=== PATIENT | female | born 1930 | race Caucasian/White ===

== ENCOUNTER 2018-10-01 14:21 | Inpatient (IN) | payer MEDICARE, BC ==
[~2018-10-01] VITALS: Ht 147.3 cm; Wt 66.2 kg
[2018-10-01] MEDS ORDERED: Z GUARD REMEDY PASTE 57 GM TUBE TOP PRN (16:15)
[2018-10-01] MEDS ORDERED: MAGNESIUM HYDROXIDE 30 ML LIQUID UDC PO PRN (16:15)
[2018-10-01] MEDS ORDERED: CLOP75TA15 PO (17:09)
[2018-10-01] MEDS ORDERED: GLIP10TA11 PO (17:09)
[2018-10-01] MEDS ORDERED: ASPI-605 PO (17:09)
[2018-10-01] MEDS ORDERED: LUTE1CAP PO (17:09)
[2018-10-01] MEDS ORDERED: METO-357 PO (17:09)
[2018-10-01] MEDS ORDERED: MAGN250T37 PO (17:09)
[2018-10-01] MEDS ORDERED: ATOR10TA PO (17:09)
[2018-10-01] MEDS ORDERED: POLY255P19 PO (17:09)
[2018-10-01] MEDS ORDERED: AMLO5TAB9 PO (17:09)
[2018-10-01] MEDS ORDERED: METF-442 PO (17:09)
[2018-10-01] MEDS ORDERED: SITA100T PO (17:09)
[2018-10-01] MEDS ORDERED: ECON15CR2 TP (17:09)
[2018-10-01] MEDS ORDERED: LOSA1TAB39 PO (17:09)
[2018-10-01] MEDS ORDERED: CANA100T PO (17:09)
[2018-10-01] MEDS ORDERED: CYAN200017 PO (17:09)
[2018-10-01 17:22] VITALS: BP 149/67
--- NOTE | 2018-10-01 18:27 | NUR ---
Home medications entered, paged Mica HERNANDEZ for medication reconciliation.
--- NOTE | 2018-10-01 18:29 | NUR ---
Admission Note: At 1610 admitted a 88 years old female resident from [facility] via Ambulance via gurney with 2 EMT personnel and DTR for support. Resident is under the care of Dr. Mcginnis and Ger CUELLAR. Resident came with the following past medical hx: DM, HTN, HLD, OA, Glaucoma, obesity, cataract, and CVA. Resident presented at [facility] with c/o acute left sided weakness. Resident has allergies to PCN. Resident is Full code. A/Ox3, responsive to verbal and tactile stimuli. No SOB or acute distress noted, 98% RA. Denies any pain or discomfort at this time. All resident's needs provided, attended and met. Dr. Mcginnis came and evaluated pt. Initial skin assessment reveals left breast fold skin redness with tear,otherwise skin intact. Resident on NCS diet. Dr. Mcginnis and MARY Rizzo made aware of resident's arrival and admission. Kept pt. clean and dry. On low bed with bed alarm turned on. Call light and all frequently used items within reach. Will endorse to oncoming shift accordingly.
--- NOTE | 2018-10-01 20:20 | NUR ---
Blood sugar checked per patient and family member request, sugar noted to be 280. No acute distress noted. Safety maintained. Awaiting med recon.
[2018-10-01] MEDS ORDERED: ECONAZOLE CREAM 30 GM TUBE TP PRN (20:30)
[2018-10-01 20:31] VITALS: BP 96/60
[2018-10-01] MEDS: ATORVASTATIN 10 MG TABLET PO SCH (20:54)
--- NOTE | 2018-10-01 22:32 | NUR ---
Received pt at beginning of shift in bed, appearing to be asleep but easily arousable to verbal stimuli and light touch. No acute distress noted. Primarily Austrian speaking, but able to communicate basic needs in Macedonian. Denies pain or discomfort at this time. All due medications given as ordered, tolerated well. Assisted to bedside commode x 2 with 1 person assist, using front wheel walker. All safety measures and fall precautions maintained. Call light and all personal belongings within reach. Will continue to monitor. Daughter stated she will stay overnight, visitor extended stay signed and placed in chart.
[2018-10-02 06:05] VITALS: BP 157/70
[2018-10-02 07:40] LABS: CARBON DIOXIDE 24 mmol/L (21-32); CHLORIDE 107 mmol/L (98-107); CREATININE 1.2 mg/dL (0.6-1.3); GLUCOSE 255 mg/dL (74-106); POTASSIUM 3.8 mmol/L (3.5-5.1); UREA NITROGEN, BLOOD 25 mg/dL (7-18)
[2018-10-02 07:42] LABS: BASOPHILS # (AUTO) 0.1 K/uL (0.0-8.0); BASOPHILS % (AUTO) 0.8 % (0.0-2.0); EOSINOPHILS # (AUTO) 0.2 K/uL (0.0-0.7); EOSINOPHILS % (AUTO) 3.9 % (0.0-7.0); HEMOGLOBIN 10.6 g/dL (10.9-14.3); LYMPHOCYTES # (AUTO) 3.1 K/uL (20.0-40.0); LYMPHOCYTES % (AUTO) 47.7 % (20.5-51.5); MEAN CORPUSCULAR HGB CONC 34 g/dL (32.3-35.6); MEAN CORPUSCULAR VOLUME 93.8 fL (75.5-95.3); MONOCYTES # (AUTO) 0.6 K/uL (2.0-10.0); NEUTROPHILS # (AUTO) 2.5 K/uL (1.8-8.9); NEUTROPHILS % (AUTO) 38.6 % (38.5-71.5); PLATELET COUNT (AUTO) 248 K/uL (179-408); WHITE BLOOD COUNT (AUTO) 6.4 K/uL (3.8-11.8)
[2018-10-02] MEDS ORDERED: METFORMIN HCL 500 MG TABLET PO SCH (08:00)
[2018-10-02 08:29] VITALS: BP 126/60
[2018-10-02] MEDS: HYDROCHLOROTHIAZIDE 25 MG TABLET PO SCH (08:54)
[2018-10-02] MEDS: CYANOCOBALAMIN 1,000 MCG TABLET PO SCH (08:55)
[2018-10-02] MEDS: BETA CAROTENE/VIT C & E/MIN TABLET PO SCH (08:56)
[2018-10-02] MEDS: glipiZIDE 10 MG TABLET PO SCH ×2 (08:56→16:25)
[2018-10-02] MEDS: CLOPIDOGREL 75 MG TABLET PO SCH (08:57)
[2018-10-02] MEDS: LOSARTAN POTASSIUM 50 MG TABLET PO SCH (08:57)
[2018-10-02] MEDS: AMLODIPINE 5 MG TABLET PO SCH (08:58)
[2018-10-02] MEDS: METOPROLOL SUCCINATE XL 50 MG TAB.SR.24H PO SCH (08:58)
[2018-10-02] MEDS: ASPIRIN EC 81 MG TABLET.DR PO SCH (08:58)
[2018-10-02] MEDS ORDERED: LUTEIN PO SCH (09:00)
[2018-10-02] MEDS ORDERED: POLYETHYLENE GLYCOL 3350 238 GM POWDER PO SCH (09:00)
[2018-10-02] MEDS ORDERED: Medication Not On Formulary EA (Losartan/Hydrochlorothiazide (Losartan-Hctz 100-25 Mg Ta PO SCH (09:00)
[2018-10-02] MEDS ORDERED: CYANOCOBALAMIN 2500 MCG PO SCH (09:00)
[2018-10-02] MEDS ORDERED: Medication Not On Formulary EA (Sitagliptin Phosphate (Januvia) 100 MG) PO SCH (09:00)
[2018-10-02] MEDS ORDERED: Medication Not On Formulary EA (Metformin Hcl 1,000 MG) PO SCH (09:00)
[2018-10-02] MEDS ORDERED: ZEAXANTHIN PO SCH (09:00)
[2018-10-02] MEDS ORDERED: Medication Not On Formulary EA (Canagliflozin (Invokana) 100 MG) PO SCH (09:00)
[2018-10-02] MEDS ORDERED: [UNRECOGNIZED DRUG - OTHER] PO SCH (09:00)
[2018-10-02] MEDS: MIRALAX 17 GM POWD.PACK PO SCH (09:01)
[2018-10-02] MEDS: MAGNESIUM OXIDE 250 MG TABLET PO SCH (09:01)
[2018-10-02] MEDS: LINAGLIPTIN 5 MG TABLET PO SCH (09:09)
--- NOTE | 2018-10-02 10:24 | NUR ---
Patient continue therapy for ambulation, left sided weakness and ADL activity. Continue PO DM medication to control blood sugar. not in distress.. no signs of hypo/hyperglycemia. will continue monitor
[2018-10-02 15:42] VITALS: BP 115/52
--- NOTE | 2018-10-02 15:48 | NUR ---
Patient seen and examined by GI recreation programmer MD King. with order MRCP without contrast scheduled tomorrow at 10am.
[2018-10-02 20:11] VITALS: BP 150/59
[2018-10-02] MEDS: ATORVASTATIN 10 MG TABLET PO SCH (20:19)
[2018-10-02] MEDS: BLOOD SUGAR DIAGNOSTIC 1 EACH STRIP VI SCH (20:24)
--- NOTE | 2018-10-03 01:29 | NUR ---
aaox2-3 patient admitted for CVA with left side weakness.Speech slurred. Daughter at bedside. Accucheck @ 2100 was 300. Patient asymptomatic and dr Estevez aware and asked if he is going to put this patient on sliding scale He said no new orders. Daughter very concerned about the patient's blood sugar and says why all her diabetic pills changed, wants to speak to the doctor. will relay the message to the incoming nurse in am.
[2018-10-03 08:00] VITALS: BP 144/57
[2018-10-03] MEDS: CLOPIDOGREL 75 MG TABLET PO SCH (08:57)
[2018-10-03] MEDS: glipiZIDE 10 MG TABLET PO SCH ×2 (09:00→17:22)
[2018-10-03] MEDS: LINAGLIPTIN 5 MG TABLET PO SCH (09:00)
[2018-10-03] MEDS: MIRALAX 17 GM POWD.PACK PO SCH (09:00)
[2018-10-03] MEDS: LOSARTAN POTASSIUM 50 MG TABLET PO SCH (09:00)
[2018-10-03] MEDS: BETA CAROTENE/VIT C & E/MIN TABLET PO SCH (09:01)
[2018-10-03] MEDS: MAGNESIUM OXIDE 250 MG TABLET PO SCH (09:04)
[2018-10-03] MEDS: ASPIRIN EC 81 MG TABLET.DR PO SCH (09:05)
[2018-10-03] MEDS: METOPROLOL SUCCINATE XL 50 MG TAB.SR.24H PO SCH (09:05)
[2018-10-03] MEDS: HYDROCHLOROTHIAZIDE 25 MG TABLET PO SCH (09:06)
[2018-10-03] MEDS: CYANOCOBALAMIN 1,000 MCG TABLET PO SCH (09:08)
[2018-10-03] MEDS: METFORMIN HCL 500 MG TABLET PO SCH ×2 (12:27→17:21)
[2018-10-03] MEDS: BLOOD SUGAR DIAGNOSTIC 1 EACH STRIP VI SCH ×4 (12:27→20:36)
[2018-10-03 16:00] VITALS: BP_SYST 182; BP_SYST 190; BP_DIAS 100; BP_DIAS 72
[2018-10-03] MEDS: AMLODIPINE 5 MG TABLET PO SCH (17:22)
[2018-10-03 19:30] VITALS: BP 112/68
[2018-10-03] MEDS: ATORVASTATIN 10 MG TABLET PO SCH (20:35)
--- NOTE | 2018-10-03 21:57 | NUR ---
SBAR report received. Awake alert and oriented x2-3 Daughter at bedside. No acute distress noted. Denies any pain nor any discomfort. OOB to bedside commode with assist. Voiding without difficulty. Blood sugar 348. Patient asymptomatic. daughter aware of patient's blood sugar. Needs attending. Will monitor patient. VSS.Fall precautions maintained.
[2018-10-04] MEDS: BLOOD SUGAR DIAGNOSTIC 1 EACH STRIP VI SCH ×4 (06:50→21:13)
[2018-10-04 07:04] VITALS: BP 142/49
[2018-10-04 08:00] VITALS: BP 143/56
[2018-10-04 08:02] LABS: BASOPHILS % (AUTO) 0.5 % (0.0-2.0); EOSINOPHILS # (AUTO) 0.2 K/uL (0.0-0.7); HEMATOCRIT 29.3 % (31.2-41.9); LYMPHOCYTES # (AUTO) 2.9 K/uL (20.0-40.0); LYMPHOCYTES % (AUTO) 40.3 % (20.5-51.5); MEAN CORPUSCULAR HEMOGLOBIN 31.5 uug (24.7-32.8); MEAN CORPUSCULAR HGB CONC 34 g/dL (32.3-35.6); MEAN CORPUSCULAR VOLUME 92.4 fL (75.5-95.3); MONOCYTES # (AUTO) 0.6 K/uL (2.0-10.0); MONOCYTES % (AUTO) 8.2 % (0.0-11.0); NEUTROPHILS # (AUTO) 3.5 K/uL (1.8-8.9); PLATELET COUNT (AUTO) 252 K/uL (179-408); RED BLOOD CELL COUNT(AUTO) 3.17 MIL/uL (3.63-4.92); WHITE BLOOD COUNT (AUTO) 7.2 K/uL (3.8-11.8)
[2018-10-04 08:22] LABS: THYROID STIMULATING HORMONE 1.537 mIU/mL (0.358-3.740)
[2018-10-04] MEDS: LOSARTAN POTASSIUM 50 MG TABLET PO SCH (08:28)
[2018-10-04] MEDS: METFORMIN HCL 500 MG TABLET PO SCH ×2 (08:28→17:10)
[2018-10-04] MEDS: CYANOCOBALAMIN 1,000 MCG TABLET PO SCH (08:29)
[2018-10-04 08:38] LABS: ALANINE AMINOTRANSFERASE 28 U/L (14-59); ALKALINE PHOSPHATASE 54 U/L (50-136); ASPARTATE AMINOTRANSFERASE 19 U/L (15-37); BILIRUBIN,TOTAL 0.2 mg/dL (0.2-1.0); CARBON DIOXIDE 27 mmol/L (21-32); CHLORIDE 103 mmol/L (98-107); CHOLESTEROL 181 mg/dL (<200); CREATININE 1.4 mg/dL (0.6-1.3); GLUCOSE 231 mg/dL (74-106); HDL CHOLESTEROL 56 mg/dL (40-60); MAGNESIUM 2.2 mg/dL (1.8-2.4); POTASSIUM 4.1 mmol/L (3.5-5.1); TOTAL PROTEIN, SERUM 7.1 g/dL (6.4-8.2); TRIGLYCERIDES 195 MG/DL (30-150); UREA NITROGEN, BLOOD 41 mg/dL (7-18)
[2018-10-04 08:43] LABS: IRON, SERUM 47 ug/dL (50-175)
[2018-10-04] MEDS: BETA CAROTENE/VIT C & E/MIN TABLET PO SCH (09:26)
[2018-10-04] MEDS: LINAGLIPTIN 5 MG TABLET PO SCH (09:26)
[2018-10-04] MEDS: MAGNESIUM OXIDE 250 MG TABLET PO SCH (09:26)
[2018-10-04] MEDS: glipiZIDE 10 MG TABLET PO SCH ×2 (09:26→16:44)
[2018-10-04] MEDS: ASPIRIN EC 81 MG TABLET.DR PO SCH (09:26)
[2018-10-04] MEDS: AMLODIPINE 5 MG TABLET PO SCH (09:32)
[2018-10-04] MEDS: METOPROLOL SUCCINATE XL 50 MG TAB.SR.24H PO SCH (09:32)
[2018-10-04] MEDS: HYDROCHLOROTHIAZIDE 25 MG TABLET PO SCH (09:33)
[2018-10-04] MEDS: CLOPIDOGREL 75 MG TABLET PO SCH (09:33)
[2018-10-04] MEDS: MIRALAX 17 GM POWD.PACK PO SCH (09:34)
--- NOTE | 2018-10-04 10:00 | NUR ---
Received pt. in bed with eyes closed and comfortable. Pt. A/Ox2-3, responsive to verbal and tactile stimuli. Denies SOB and CP at this time. All due AM medications administered and tolerated well. No s/sx of hypo/hyperglycemia. No new skin condition noted. Safety measures and fall precaution in placed. Call light and all frequently used items within pt. reach. Will continue to monitor accordingly.
--- NOTE | 2018-10-04 13:28 | NUR ---
INTERDISCIPLINARY TEAM CONFERENCE
[2018-10-04 16:00] VITALS: BP 143/63
[2018-10-04 17:55] LABS: *BILIRUBIN,URIN NEGATIVE (NEGATIVE); *BLOOD, URINE NEGATIVE (NEGATIVE); *COLOR,URINE YELLOW (YELLOW); *KETONES,URINE NEGATIVE (NEGATIVE); *UROBILINOGEN,URINE 0.2 E.U./dl (NORMAL); LEUKOCYTE ESTERASE ,URINE 2+ (NEGATIVE); NITRITE, URINE NEGATIVE (NEGATIVE); PH,URINE 5.5 (5.0-8.0); UGLUCOSE NEGATIVE (NEGATIVE)
[2018-10-04 18:01] LABS: *CLARITY,URINE HAZY (CLEAR)
[2018-10-04 18:04] LABS: BACTERIA,URINE FEW /HPF (NONE SEEN); MUCUS,URINE MODERATE /LPF (0-FEW); RBC,URINE 0-3 /HPF (0-3); SQUAMOUS EPITHELIAL CELL,UR MODERATE /HPF (NONE SEEN); WBC,URINE 20-50 /HPF (0-3)
--- NOTE | 2018-10-04 18:36 | NUR ---
EOS NOTE: Pt. seen and evaluated by HOOP COILING MACHINE OPERATOR with order for UA and C&S for diminished energy. Pt. and DTR made aware. Urine obtained and sent to lab. All due medications given as ordered and tolerated well by pt. Safety measure and precaution in placed. No new skin condition noted. All pt. needs attended and met. Call light and all frequently used items within pt. reach. Will endorse to oncoming shift accordingly.
[2018-10-04] MEDS: ATORVASTATIN 10 MG TABLET PO SCH (20:58)
[2018-10-04] MEDS: hydrALAZINE HCL 25 MG TABLET PO PRN (20:59)
[2018-10-04 21:27] VITALS: BP 183/86
--- NOTE | 2018-10-05 02:42 | NUR ---
Received patient lying on bed .Alert Able to make needs known . No SOB .NO Distress noted . Daughter at bedside . V/S BP 183/86 HR 96 . Hydralazine 25 mg given via PO prn per MD order . No s/s of nausea and vomiting ,dizziness and light headed. Will continue to monitor . Skin intact . Call lights and other belongings with in reach at all times . All needs met and assisted . Kept clean and dry .Visual checks and monitor .
[2018-10-05] MEDS: BLOOD SUGAR DIAGNOSTIC 1 EACH STRIP VI SCH ×4 (07:02→20:19)
[2018-10-05] MEDS: glipiZIDE 10 MG TABLET PO SCH ×2 (07:03→17:20)
[2018-10-05 08:00] VITALS: BP 140/61
[2018-10-05] MEDS: METFORMIN HCL 500 MG TABLET PO SCH ×2 (08:12→17:19)
[2018-10-05] MEDS: CLOPIDOGREL 75 MG TABLET PO SCH (08:15)
[2018-10-05] MEDS: SULFAMETH/TRIMETH 800/160 MG TABLET PO SCH ×2 (08:15→20:25)
[2018-10-05] MEDS: CYANOCOBALAMIN 1,000 MCG TABLET PO SCH (08:15)
[2018-10-05] MEDS: LOSARTAN POTASSIUM 50 MG TABLET PO SCH (08:17)
[2018-10-05] MEDS: HYDROCHLOROTHIAZIDE 25 MG TABLET PO SCH (08:18)
[2018-10-05] MEDS: MIRALAX 17 GM POWD.PACK PO SCH (08:20)
[2018-10-05] MEDS: BETA CAROTENE/VIT C & E/MIN TABLET PO SCH (08:20)
--- NOTE | 2018-10-05 10:01 | NUR ---
Patient noted resting in bed with eyes closed, no complaints of pain, no signs of distress noted, call light in reach, daughter noted in room, call light in reach, bed locked and in lowest
[2018-10-05] MEDS: LINAGLIPTIN 5 MG TABLET PO SCH (12:46)
--- NOTE | 2018-10-05 13:08 | NUR ---
INTERDISCIPLINARY TEAM CONFERENCE
[2018-10-05 16:00] VITALS: BP 128/50
[2018-10-05] MEDS ORDERED: METOPROLOL SUCCINATE XL 50 MG TAB.SR.24H PO SCH (17:00)
[2018-10-05] MEDS: AMLODIPINE 5 MG TABLET PO SCH (17:00)
[2018-10-05] MEDS ORDERED: AMLODIPINE 5 MG TABLET PO SCH (17:00)
[2018-10-05] MEDS: METOPROLOL SUCCINATE XL 50 MG TAB.SR.24H PO SCH (17:21)
--- NOTE | 2018-10-05 18:48 | NUR ---
No change in status noted this shift, all medications taken this shift, no complaints of pain
--- NOTE | 2018-10-05 18:49 | NUR ---
Refused all insulin this shift
--- NOTE | 2018-10-05 19:20 | NUR ---
Received patient in bed. Alert and verbally responsive. Able to make needs known. Denies any pain and discomfort. No acute distress. No SOB. Kept clean and dry. All needs attended to promptly. Call light within reach. Will continue to monitor.
[2018-10-05] MEDS: ATORVASTATIN 10 MG TABLET PO SCH (20:22)
[2018-10-05] MEDS: ASPIRIN EC 81 MG TABLET.DR PO SCH (20:22)
[2018-10-05] MEDS: hydrALAZINE HCL 25 MG TABLET PO PRN (20:25)
[2018-10-05] MEDS: MAGNESIUM OXIDE 250 MG TABLET PO SCH (20:30)
[2018-10-05] MEDS ORDERED: MAGNESIUM OXIDE 250 MG TABLET PO SCH (21:00)
[2018-10-05] MEDS ORDERED: ASPIRIN EC 81 MG TABLET.DR PO SCH (21:00)
[2018-10-06 05:00] VITALS: BP 159/61
[2018-10-06] MEDS: BLOOD SUGAR DIAGNOSTIC 1 EACH STRIP VI SCH ×4 (06:35→20:54)
[2018-10-06] MEDS: glipiZIDE 10 MG TABLET PO SCH ×2 (06:35→17:08)
--- NOTE | 2018-10-06 06:57 | NUR ---
Blood sugar this AM is 267. No s/s of hyperglycemia. Patient is alert and verbally responsive. Able to make needs known. Daughter at bedside. Will continue to monitor.
--- NOTE | 2018-10-06 07:47 | NUR ---
Patient noted resting in bed with eyes closed, daughter noted at bedside, no complaints of pain at this time, no signs of distress noted, call light in reach, bed locked and in lowest position, all needs met at this time
[2018-10-06 08:00] VITALS: BP 149/69
[2018-10-06] MEDS: METFORMIN HCL 500 MG TABLET PO SCH ×2 (08:13→17:08)
[2018-10-06] MEDS: CLOPIDOGREL 75 MG TABLET PO SCH (08:13)
[2018-10-06] MEDS: SULFAMETH/TRIMETH 800/160 MG TABLET PO SCH (08:13)
[2018-10-06] MEDS: CYANOCOBALAMIN 1,000 MCG TABLET PO SCH (08:14)
[2018-10-06] MEDS: MODAFINIL 100 MG TABLET PO SCH (08:14)
[2018-10-06] MEDS: BETA CAROTENE/VIT C & E/MIN TABLET PO SCH (08:15)
[2018-10-06] MEDS: MIRALAX 17 GM POWD.PACK PO SCH (08:15)
[2018-10-06] MEDS: HYDROCHLOROTHIAZIDE 25 MG TABLET PO SCH (08:18)
[2018-10-06] MEDS: LOSARTAN POTASSIUM 50 MG TABLET PO SCH (08:18)
--- NOTE | 2018-10-06 09:44 | NUR ---
One episode of vomiting after breakfast noted, denies need for nausea medication at this time, will continue to monitor
[2018-10-06] MEDS: LINAGLIPTIN 5 MG TABLET PO SCH ×2 (12:05→12:09)
[2018-10-06] MEDS: REPAGLINIDE 1 MG TABLET PO SCH (17:08)
[2018-10-06] MEDS: AMLODIPINE 5 MG TABLET PO SCH (17:08)
[2018-10-06] MEDS: METOPROLOL SUCCINATE XL 50 MG TAB.SR.24H PO SCH (17:09)
[2018-10-06 18:01] VITALS: BP 137/62
[2018-10-06 20:24] VITALS: BP 171/77
[2018-10-06] MEDS: ASPIRIN EC 81 MG TABLET.DR PO SCH (20:42)
[2018-10-06] MEDS: ATORVASTATIN 10 MG TABLET PO SCH (20:42)
[2018-10-06] MEDS: MAGNESIUM OXIDE 250 MG TABLET PO SCH (20:44)
--- NOTE | 2018-10-06 22:59 | NUR ---
Received patient lying on bed . Alert . Able to make needs known . Daughter at bedside .No respiratory distress , No sob ,no pain discomfort noted . Due meds given as ordered .Tolerated well . Accu check done BS 247 no order of Insulin . No s/s of Hyperglycemia noted .Will continue to monitor and observe . Patient assisted to use the commode . Good joselin care rendered . Keep clean and dry . Call light and other belongings within reach at all times. Visual checks and monitor . All needs met and attended .
[2018-10-07] MEDS: HYDROCODONE/APAP 5-325MG TABLET PO ONE (04:20)
--- NOTE | 2018-10-07 04:20 | NUR ---
Complained of knee pain 8/[address] Mica Charles ordered Compton 5/325 mg tab. x dose for knee pain . Patient daughter refused the Compton for her mom to take patient already sleeping . Explained risks and benefits strongly refused . Continue monitor .
[2018-10-07 05:00] VITALS: BP 168/74
[2018-10-07] MEDS: glipiZIDE 10 MG TABLET PO SCH ×2 (06:41→17:11)
[2018-10-07] MEDS: BLOOD SUGAR DIAGNOSTIC 1 EACH STRIP VI SCH ×4 (06:49→21:05)
[2018-10-07 08:00] VITALS: BP 160/81
[2018-10-07] MEDS ORDERED: SULFAMETH/TRIMETH 800/160 MG TABLET PO SCH (09:00)
[2018-10-07] MEDS: METFORMIN HCL 500 MG TABLET PO SCH ×2 (09:06→17:56)
[2018-10-07] MEDS: REPAGLINIDE 1 MG TABLET PO SCH ×3 (09:07→17:57)
[2018-10-07] MEDS: HYDROCHLOROTHIAZIDE 25 MG TABLET PO SCH (09:12)
[2018-10-07] MEDS: LOSARTAN POTASSIUM 50 MG TABLET PO SCH (09:12)
[2018-10-07] MEDS: BETA CAROTENE/VIT C & E/MIN TABLET PO SCH (09:15)
[2018-10-07] MEDS: CLOPIDOGREL 75 MG TABLET PO SCH (09:17)
[2018-10-07] MEDS: MODAFINIL 100 MG TABLET PO SCH (09:17)
[2018-10-07] MEDS: MIRALAX 17 GM POWD.PACK PO SCH (09:18)
[2018-10-07] MEDS: CYANOCOBALAMIN 1,000 MCG TABLET PO SCH (09:19)
[2018-10-07 16:17] VITALS: BP 160/79
[2018-10-07] MEDS: METOPROLOL SUCCINATE XL 50 MG TAB.SR.24H PO SCH (17:56)
[2018-10-07] MEDS: AMLODIPINE 5 MG TABLET PO SCH (17:57)
--- NOTE | 2018-10-07 18:07 | NUR ---
Daily Nursing Note: Patient alert and oriented x3 not in distress, compliant with plan of care, Rahel CUELLAR made rounds and continue with pain management and rehab care plan. Daughter at bedside at all times, needs attended promptly, no complaints. No episode of Hypo/hyperglycemia during the shift.
--- NOTE | 2018-10-07 19:50 | NUR ---
Patient received in bed. AAO x4. Able to make needs known. Gabonese speaking. Her daughter at the bed side. No sign of acute distress or SOB was noted. On room air. No Complain of pain at this time. Patient assessed. Safety measures maintained. Bed in low position, brake and alarm on, side rails up x2. Call light and personal belongings within reach. Will continue to monitor.
[2018-10-07 20:32] VITALS: BP 167/72
[2018-10-07] MEDS: MAGNESIUM OXIDE 250 MG TABLET PO SCH (20:45)
[2018-10-07] MEDS: ATORVASTATIN 10 MG TABLET PO SCH (20:46)
[2018-10-07] MEDS: ASPIRIN EC 81 MG TABLET.DR PO SCH (20:46)
[2018-10-07] MEDS: hydrALAZINE HCL 25 MG TABLET PO PRN (20:57)
[2018-10-07] MEDS ORDERED: METHYL SALICYLATE/MENTHOL CREAM 28 GM TUBE TOP PRN (21:00)
--- NOTE | 2018-10-07 21:00 | NUR ---
Patient has a high BP:167/72 from the MEMS DEVICE SCIENTIST report. Patient was stable without any sign and symptom. BP checked again, it was 156/72. Hydralazine 25 mg tab given. continue to monitor.
--- NOTE | 2018-10-07 21:05 | NUR ---
Patient had high BS: 325 at 2039. Patient was stable without any S&S. No insulin in the medication. Her daughter stated that her mom had a dinner one hour ago. Will try to check it later. Continue to monitor.
[2018-10-08] MEDS: ACETAMINOPHEN 325 MG TABLET PO PRN ×2 (02:10→20:13)
[2018-10-08 04:55] VITALS: BP 162/72
[2018-10-08] MEDS: glipiZIDE 10 MG TABLET PO SCH ×2 (06:44→16:40)
[2018-10-08] MEDS: BLOOD SUGAR DIAGNOSTIC 1 EACH STRIP VI SCH ×4 (06:51→20:12)
[2018-10-08 07:10] VITALS: BP 127/55
[2018-10-08 07:16] LABS: BASOPHILS # (AUTO) 0.1 K/uL (0.0-8.0); EOSINOPHILS # (AUTO) 0.4 K/uL (0.0-0.7); EOSINOPHILS % (AUTO) 5.3 % (0.0-7.0); HEMATOCRIT 28.1 % (31.2-41.9); HEMOGLOBIN 9.7 g/dL (10.9-14.3); LYMPHOCYTES # (AUTO) 3.2 K/uL (20.0-40.0); LYMPHOCYTES % (AUTO) 43.8 % (20.5-51.5); MEAN CORPUSCULAR HEMOGLOBIN 32.3 uug (24.7-32.8); MEAN CORPUSCULAR HGB CONC 34 g/dL (32.3-35.6); MEAN CORPUSCULAR VOLUME 93.8 fL (75.5-95.3); MONOCYTES # (AUTO) 0.7 K/uL (2.0-10.0); MONOCYTES % (AUTO) 10.2 % (0.0-11.0); NEUTROPHILS # (AUTO) 2.9 K/uL (1.8-8.9); NEUTROPHILS % (AUTO) 39.7 % (38.5-71.5); PLATELET COUNT (AUTO) 239 K/uL (179-408); WHITE BLOOD COUNT (AUTO) 7.3 K/uL (3.8-11.8)
[2018-10-08 07:31] LABS: ALANINE AMINOTRANSFERASE 24 U/L (14-59); ALKALINE PHOSPHATASE 67 U/L (50-136); ASPARTATE AMINOTRANSFERASE 11 U/L (15-37); BILIRUBIN,TOTAL 0.2 mg/dL (0.2-1.0); CARBON DIOXIDE 25 mmol/L (21-32); CHLORIDE 96 mmol/L (98-107); CREATININE 2.2 mg/dL (0.6-1.3); GLUCOSE 195 mg/dL (74-106); MAGNESIUM 1.9 mg/dL (1.8-2.4); PHOSPHOROUS 4.9 mg/dL (2.5-4.9); POTASSIUM 4.3 mmol/L (3.5-5.1); UREA NITROGEN, BLOOD 52 mg/dL (7-18)
--- NOTE | 2018-10-08 07:43 | NUR ---
End of the shift note Patient was stable throughout the shift and had a good sleep last night. No sign of acute distress or SOB noted. Her daughter was at the bedside. Complained of pain and ask for Tylenol. Medications given as ordered. Accu-check done, BS was 325 at 2100, her daughter stated that she had dinner one hour ago, rechecked again and it was 221. BS was 207 at 0630. Safety measures maintained. All needs anticipated promptly. Fall precaution maintained. Bed in low position, brake and alarm on, side rails up x2. Call light and personal belongings within reach. Continue to monitor and will endorse to the day shift nurse.
[2018-10-08] MEDS: METFORMIN HCL 500 MG TABLET PO SCH (08:38)
[2018-10-08] MEDS: CLOPIDOGREL 75 MG TABLET PO SCH (08:38)
[2018-10-08] MEDS: MODAFINIL 100 MG TABLET PO SCH (08:38)
[2018-10-08] MEDS: CYANOCOBALAMIN 1,000 MCG TABLET PO SCH (08:39)
[2018-10-08] MEDS: MIRALAX 17 GM POWD.PACK PO SCH (08:39)
[2018-10-08] MEDS: REPAGLINIDE 1 MG TABLET PO SCH ×3 (08:41→16:41)
[2018-10-08] MEDS: LOSARTAN POTASSIUM 50 MG TABLET PO SCH (08:42)
[2018-10-08] MEDS: BETA CAROTENE/VIT C & E/MIN TABLET PO SCH (08:43)
--- NOTE | 2018-10-08 09:26 | NUR ---
SBAR report received, board updated. Pt assessed, denies pain at this time. No SOB or discomfort noted. Pt AAO, assisted to transfer from bed to wheelchair for breakfast. Pt compliant with routinely scheduled morning medications. Plan for today discussed with Pt and daughter, visiting at bedside, including plan to cooperate with therapies as offered. Bed in locked and lowest position with side rails up x2. All safety and comfort measures implemented. Call light placed within reach. Will continue to monitor.
[2018-10-08] MEDS: LINAGLIPTIN 5 MG TABLET PO SCH (12:08)
[2018-10-08] MEDS ORDERED: DEXTROSE 50% 50 ML DISP.SYRIN IV PRN (12:30)
[2018-10-08 16:05] VITALS: BP 155/54
[2018-10-08] MEDS: AMLODIPINE 5 MG TABLET PO SCH (17:12)
[2018-10-08] MEDS: METOPROLOL SUCCINATE XL 50 MG TAB.SR.24H PO SCH (17:13)
[2018-10-08] MEDS ORDERED: METFORMIN HCL 500 MG TABLET PO SCH (18:00)
--- NOTE | 2018-10-08 18:20 | NUR ---
Pt seen by . New orders received, including sliding scale. BS 262, before dinner, Pt refused 6 units of insulin coverage. Pt cooperative with all other routinely scheduled medication administration. All needs attended to promptly throughout this shift. Bed alarm on. Call light placed within reach. Will continue to monitor and endorse to oncoming electrical calibrator.
[2018-10-08 19:30] VITALS: BP 158/71
[2018-10-08] MEDS: MAGNESIUM OXIDE 250 MG TABLET PO SCH (20:12)
--- NOTE | 2018-10-08 20:12 | NUR ---
Patient BS is 220. No s/s of hyperglycemia. Daughter at bedside. Patient refuses insulin. Daughter is aware. Education provided x3. Still strongly refused. All needs attended to promptly. Call light within reach. Will continue to monitor.
[2018-10-08] MEDS: ATORVASTATIN 10 MG TABLET PO SCH (20:13)
[2018-10-08] MEDS: hydrALAZINE HCL 25 MG TABLET PO PRN (20:17)
--- NOTE | 2018-10-08 20:17 | NUR ---
BP noted to be 158/71, HR: 87. No acute distress noted. No c/o N/V, no c/o dizziness. Hydralazine 25mg given as needed. Will continue to monitor patient.
[2018-10-08] MEDS: ASPIRIN EC 81 MG TABLET.DR PO SCH (20:19)
[2018-10-08 21:48] VITALS: BP 146/65
--- NOTE | 2018-10-08 21:48 | NUR ---
Re-checked BP. Noted to be 146/65. HR: 82. No c/o pain and discomfort. No acute distress. No SOB. All needs attended to promptly. Call light within reach. Will continue to monitor.
[2018-10-09] MEDS: BLOOD SUGAR DIAGNOSTIC 1 EACH STRIP VI SCH ×4 (06:36→20:15)
[2018-10-09 08:03] LABS: BASOPHILS % (AUTO) 0.7 % (0.0-2.0); EOSINOPHILS # (AUTO) 0.3 K/uL (0.0-0.7); EOSINOPHILS % (AUTO) 5.1 % (0.0-7.0); HEMATOCRIT 25.6 % (31.2-41.9); HEMOGLOBIN 8.9 g/dL (10.9-14.3); LYMPHOCYTES # (AUTO) 2.8 K/uL (20.0-40.0); LYMPHOCYTES % (AUTO) 41.5 % (20.5-51.5); MEAN CORPUSCULAR HEMOGLOBIN 31.5 uug (24.7-32.8); MEAN CORPUSCULAR HGB CONC 35 g/dL (32.3-35.6); MEAN CORPUSCULAR VOLUME 91.1 fL (75.5-95.3); MONOCYTES # (AUTO) 0.6 K/uL (2.0-10.0); MONOCYTES % (AUTO) 8.7 % (0.0-11.0); PLATELET COUNT (AUTO) 239 K/uL (179-408); RED BLOOD CELL COUNT(AUTO) 2.82 MIL/uL (3.63-4.92); WHITE BLOOD COUNT (AUTO) 6.8 K/uL (3.8-11.8)
[2018-10-09 08:14] LABS: ALANINE AMINOTRANSFERASE 23 U/L (14-59); ALKALINE PHOSPHATASE 66 U/L (50-136); ASPARTATE AMINOTRANSFERASE 14 U/L (15-37); BILIRUBIN,TOTAL 0.3 mg/dL (0.2-1.0); CARBON DIOXIDE 27 mmol/L (21-32); CHLORIDE 97 mmol/L (98-107); CREATINE KINASE, TOTAL 52 U/L (26-192); CREATININE 1.8 mg/dL (0.6-1.3); GLUCOSE 138 mg/dL (74-106); MAGNESIUM 1.8 mg/dL (1.8-2.4); PHOSPHOROUS 3.5 mg/dL (2.5-4.9); POTASSIUM 3.7 mmol/L (3.5-5.1); UREA NITROGEN, BLOOD 49 mg/dL (7-18)
[2018-10-09] MEDS: REPAGLINIDE 1 MG TABLET PO SCH ×3 (08:43→16:49)
[2018-10-09] MEDS: glipiZIDE 10 MG TABLET PO SCH ×2 (08:43→16:49)
[2018-10-09] MEDS: BETA CAROTENE/VIT C & E/MIN TABLET PO SCH (08:43)
[2018-10-09] MEDS: MODAFINIL 100 MG TABLET PO SCH (08:43)
[2018-10-09] MEDS: CLOPIDOGREL 75 MG TABLET PO SCH (08:43)
[2018-10-09] MEDS: MIRALAX 17 GM POWD.PACK PO SCH (08:43)
[2018-10-09] MEDS: CYANOCOBALAMIN 1,000 MCG TABLET PO SCH (08:44)
[2018-10-09] MEDS: hydrALAZINE HCL 25 MG TABLET PO PRN ×2 (08:50→20:17)
[2018-10-09] MEDS ORDERED: LOSARTAN POTASSIUM 50 MG TABLET PO SCH (09:00)
[2018-10-09] MEDS ORDERED: HYDROCHLOROTHIAZIDE 25 MG TABLET PO SCH (09:00)
[2018-10-09] MEDS: ACETAMINOPHEN 325 MG TABLET PO PRN (09:36)
[2018-10-09] MEDS: INSULIN REGULAR, HUMAN 300 UNIT/3 ML VIAL SQ PRN ×3 (11:34→20:26)
[2018-10-09] MEDS: LINAGLIPTIN 5 MG TABLET PO SCH (12:37)
--- NOTE | 2018-10-09 12:47 | NUR ---
Patient seen and examined by MD Mendez. refuse to reorder metformin as per requested by the daughter due to increase creatinine. will continue monitor
[2018-10-09 15:33] VITALS: BP 176/86
[2018-10-09] MEDS: AMLODIPINE 5 MG TABLET PO SCH (16:49)
[2018-10-09] MEDS: METOPROLOL SUCCINATE XL 50 MG TAB.SR.24H PO SCH (16:50)
--- NOTE | 2018-10-09 19:35 | NUR ---
Patient kidney ultrasound relayed to MD Mendez. no new order. Patient no complaint of pain/discomfort. not in distress. will continue monitor
[2018-10-09 20:13] VITALS: BP 156/64
[2018-10-09] MEDS: MAGNESIUM OXIDE 250 MG TABLET PO SCH (20:16)
[2018-10-09] MEDS: ASPIRIN EC 81 MG TABLET.DR PO SCH (20:16)
[2018-10-09] MEDS: ATORVASTATIN 10 MG TABLET PO SCH (20:16)
--- NOTE | 2018-10-10 03:02 | NUR ---
Received pt at the beginning of shift sleeping comfortably in bed. Aroused easily when alerted by name. North Korean speaking. Daughter at bedside. No acute distress noted. No c/o pain or discomfort. Accucheck of 146, refused insulin. Risks and benefits explained, still refused. BP elevated 156/64, PRN apresoline given. All due meds given as ordered. Safety measures maintained. Call light and personal belongings within reach. Will continue to monitor.
[2018-10-10 04:00] VITALS: BP 163/73
[2018-10-10] MEDS: hydrALAZINE HCL 25 MG TABLET PO PRN ×2 (05:58→21:00)
[2018-10-10] MEDS: BLOOD SUGAR DIAGNOSTIC 1 EACH STRIP VI SCH ×4 (06:39→21:03)
--- NOTE | 2018-10-10 07:04 | NUR ---
No redness on breast fold noted.
[2018-10-10 08:00] VITALS: BP 162/70
[2018-10-10] MEDS: REPAGLINIDE 1 MG TABLET PO SCH ×3 (09:10→17:16)
[2018-10-10] MEDS: BETA CAROTENE/VIT C & E/MIN TABLET PO SCH (09:14)
[2018-10-10] MEDS: glipiZIDE 10 MG TABLET PO SCH ×2 (09:14→17:18)
[2018-10-10] MEDS: MIRALAX 17 GM POWD.PACK PO SCH (09:15)
[2018-10-10] MEDS: CLOPIDOGREL 75 MG TABLET PO SCH (09:16)
[2018-10-10] MEDS: MODAFINIL 100 MG TABLET PO SCH (09:16)
[2018-10-10] MEDS: CYANOCOBALAMIN 1,000 MCG TABLET PO SCH (09:16)
--- NOTE | 2018-10-10 09:38 | NUR ---
Received patient alert and verbally responsive with daughter on bedside in stable condition. Continue blood sugar monitoring. BS 168 refuse insulin sliding scale. no signs of hypo/hyperglycemia. no complaint of pain/discomfort. Continue therapy for ADL and ambulation activity. will continue monitor
[2018-10-10] MEDS: INSULIN REGULAR, HUMAN 300 UNIT/3 ML VIAL SQ PRN ×2 (11:52→17:13)
[2018-10-10] MEDS: LINAGLIPTIN 5 MG TABLET PO SCH (11:56)
[2018-10-10 13:09] LABS: ALBUMIN 3.1 g/dL (2.9-4.4); ALPHA-1-GLOBULIN 0.2 g/dL (0.0-0.4); ALPHA-2-GLOBULIN 0.7 g/dL (0.4-1.0); GAMMA GLOBULIN 1.1 g/dL (0.4-1.8); M-SPIKE Not Observed g/dL (Not Observed)
[2018-10-10] MEDS: ACETAMINOPHEN 325 MG TABLET PO PRN ×2 (13:46→21:10)
[2018-10-10 16:00] VITALS: BP 142/70
[2018-10-10] MEDS: METOPROLOL SUCCINATE XL 50 MG TAB.SR.24H PO SCH (17:16)
[2018-10-10] MEDS: AMLODIPINE 5 MG TABLET PO SCH (17:16)
--- NOTE | 2018-10-10 19:00 | NUR ---
Received patient in bed, appears sleeping at this time. Daughter at bedside. No s/s of pain/discomforts noted. No s/s of respiratory distress . Safety measure and fall precaution maintained. Continue care as planned.
--- NOTE | 2018-10-10 20:00 | NUR ---
SBP 178/84. Denies any s/s of hypertension. Will give PRN HTN meds as ordered. Continue to monitor.
[2018-10-10 20:52] VITALS: BP 178/84
[2018-10-10] MEDS: ATORVASTATIN 10 MG TABLET PO SCH (20:59)
[2018-10-10] MEDS: ASPIRIN EC 81 MG TABLET.DR PO SCH (20:59)
[2018-10-10] MEDS: MAGNESIUM OXIDE 250 MG TABLET PO SCH (20:59)
[2018-10-10 21:00] VITALS: BP 164/70
--- NOTE | 2018-10-10 21:00 | NUR ---
BP rechecked 164/70. Denies s/s of hypertension. Apresoline 25mg given as ordered and needed. Will continue to monitor.
[2018-10-10 22:00] VITALS: BP 141/69
--- NOTE | 2018-10-10 22:00 | NUR ---
BP rechecked 141/69. Sleeping at this time.
[2018-10-11] MEDS: BLOOD SUGAR DIAGNOSTIC 1 EACH STRIP VI SCH ×4 (06:28→20:02)
[2018-10-11] MEDS: glipiZIDE 10 MG TABLET PO SCH ×2 (06:37→17:54)
[2018-10-11 06:59] VITALS: BP 142/6
--- NOTE | 2018-10-11 07:04 | NUR ---
Shift End Report: Slept well. Medicated once for complaint of pain/discomforts with relief. No further complaint presented. BP monitored and recorded. No fall/injury. All needs attended and met. Daughter remain at bedside. No significant event reported all night. Continue rehab plan of care.
--- NOTE | 2018-10-11 07:38 | NUR ---
Patient noted resting in bed, no complaints of pain at this time, no signs of distress noted, daughter noted at bedside, call light in reach, bed locked and in lowest position, all needs met at this time
[2018-10-11 08:00] VITALS: BP 140/66
[2018-10-11] MEDS: MODAFINIL 100 MG TABLET PO SCH (08:14)
[2018-10-11] MEDS: CLOPIDOGREL 75 MG TABLET PO SCH (08:14)
[2018-10-11] MEDS: MIRALAX 17 GM POWD.PACK PO SCH (08:14)
[2018-10-11] MEDS: CYANOCOBALAMIN 1,000 MCG TABLET PO SCH (08:14)
[2018-10-11] MEDS: BETA CAROTENE/VIT C & E/MIN TABLET PO SCH (08:14)
[2018-10-11] MEDS: REPAGLINIDE 1 MG TABLET PO SCH ×3 (08:15→17:49)
[2018-10-11] MEDS: ACETAMINOPHEN 325 MG TABLET PO PRN (08:15)
[2018-10-11] MEDS: LINAGLIPTIN 5 MG TABLET PO SCH (13:06)
[2018-10-11] MEDS: AMLODIPINE 5 MG TABLET PO SCH (17:53)
[2018-10-11] MEDS: METOPROLOL SUCCINATE XL 50 MG TAB.SR.24H PO SCH (17:53)
--- NOTE | 2018-10-11 18:48 | NUR ---
All medications taken this shift, no complaints of pain noted, no signs of distress, no changes noted
[2018-10-11] MEDS: INSULIN REGULAR, HUMAN 300 UNIT/3 ML VIAL SQ PRN (19:56)
[2018-10-11 20:46] VITALS: BP 159/74
[2018-10-11] MEDS: ATORVASTATIN 10 MG TABLET PO SCH (20:48)
[2018-10-11] MEDS: ASPIRIN EC 81 MG TABLET.DR PO SCH (20:48)
[2018-10-11] MEDS: MAGNESIUM OXIDE 250 MG TABLET PO SCH (20:49)
[2018-10-11] MEDS: hydrALAZINE HCL 25 MG TABLET PO PRN (23:19)
--- NOTE | 2018-10-12 | NUR ---
Blood pressure checked at 2300, it was high, BP: 178/70, patient was stable without any S&S. Hydralazine 25 mg tab given. BP rechecked 45 minutes later, BP: 136/58. Continue to monitor.
--- NOTE | 2018-10-12 05:06 | NUR ---
End of the shift note Patient was stable throughout the shift and had a good sleep last night. No sign of acute distress or SOB noted. Her daughter was at the bedside. No Complain of pain. Safety measures maintained. All needs anticipated promptly. Fall precaution maintained. Bed in low position, brake and alarm on, side rails up x2. Call light and personal belongings within reach. Continue to monitor and will endorse to the day shift nurse.
[2018-10-12] MEDS: BLOOD SUGAR DIAGNOSTIC 1 EACH STRIP VI SCH ×4 (06:39→20:45)
[2018-10-12] MEDS: glipiZIDE 10 MG TABLET PO SCH ×2 (06:39→17:21)
[2018-10-12] MEDS: ACETAMINOPHEN 325 MG TABLET PO PRN ×2 (06:45→22:20)
[2018-10-12] MEDS: hydrALAZINE HCL 25 MG TABLET PO PRN (07:03)
[2018-10-12 07:06] VITALS: BP 172/77
[2018-10-12 07:30] VITALS: BP 160/68
--- NOTE | 2018-10-12 07:55 | NUR ---
Patient noted resting in bed with eyes closed, no complaints of pain, no signs of distress, call light in reach, bed locked and in lowest position, all needs met at this time
[2018-10-12] MEDS: MIRALAX 17 GM POWD.PACK PO SCH (09:03)
[2018-10-12] MEDS: CLOPIDOGREL 75 MG TABLET PO SCH (09:03)
[2018-10-12] MEDS: CYANOCOBALAMIN 1,000 MCG TABLET PO SCH (09:03)
[2018-10-12] MEDS: BETA CAROTENE/VIT C & E/MIN TABLET PO SCH (09:03)
[2018-10-12] MEDS: REPAGLINIDE 1 MG TABLET PO SCH ×3 (09:03→17:24)
[2018-10-12] MEDS: MODAFINIL 100 MG TABLET PO SCH (09:03)
--- NOTE | 2018-10-12 13:23 | NUR ---
INTERDISCIPLINARY TEAM CONFERENCE
[2018-10-12] MEDS: LINAGLIPTIN 5 MG TABLET PO SCH (13:35)
[2018-10-12 16:14] VITALS: BP 158/76
[2018-10-12] MEDS: AMLODIPINE 5 MG TABLET PO SCH (17:24)
[2018-10-12] MEDS: METOPROLOL SUCCINATE XL 50 MG TAB.SR.24H PO SCH (17:25)
[2018-10-12] MEDS: INSULIN REGULAR, HUMAN 300 UNIT/3 ML VIAL SQ PRN (17:35)
--- NOTE | 2018-10-12 17:47 | NUR ---
Patient refused morning and evening insulin, no changes this shift, all needs met
--- NOTE | 2018-10-12 19:40 | NUR ---
Patient received in bed. AAO x4. Able to make needs known. Sierra Leonean speaking. Her daughter at the bed side. No sign of acute distress or SOB was noted. On room air. No Complain of pain at this time. Patient assessed. Safety measures maintained. Bed in low position, brake and alarm on, side rails up x2. Call light and personal belongings within reach. Will continue to monitor.
[2018-10-12 20:00] VITALS: BP 150/71
[2018-10-12] MEDS: MAGNESIUM OXIDE 250 MG TABLET PO SCH (20:46)
[2018-10-12] MEDS: ATORVASTATIN 10 MG TABLET PO SCH (20:46)
[2018-10-12] MEDS: ASPIRIN EC 81 MG TABLET.DR PO SCH ×2 (20:53→22:20)
--- NOTE | 2018-10-12 21:05 | NUR ---
Patient BS was 150 at 2100, she refused 2 units Insulin based on the sliding scale. Risk and benefits explained. Continue to monitor.
--- NOTE | 2018-10-12 22:30 | NUR ---
Daughter was not at the bedside. Patient refused Aspirin 81 mg tab at 2100. Risk and benefits explained and the opened tab discarded. When daughter came back around 2200, asked for Aspirin. Another Aspirin picked up from the pexis and given to the patient.
--- NOTE | 2018-10-12 23:44 | NUR ---
Patient's BP was 158/70. Patient's daughter refused to give the patient Hydralazine. Risks and benefits explained, still refused. Rechecked one hour later, it was 148/55. Continue to monitor.
--- NOTE | 2018-10-13 05:31 | NUR ---
End of the shift note Patient was stable throughout the shift and had a good sleep last night. No sign of acute distress or SOB noted. Her daughter was at the bedside. No Complain of pain. Accucheck done at 2100, BS: 150, patient refused 2 units Insulin based on sliding scale. Safety measures maintained. All needs anticipated promptly. Fall precaution maintained. Bed in low position, brake and alarm on, side rails up x2. Call light and personal belongings within reach. Continue to monitor and will endorse to the day shift nurse.
[2018-10-13] MEDS: glipiZIDE 10 MG TABLET PO SCH ×2 (07:00→17:22)
[2018-10-13] MEDS: BLOOD SUGAR DIAGNOSTIC 1 EACH STRIP VI SCH ×4 (07:00→23:00)
[2018-10-13] MEDS: ACETAMINOPHEN 325 MG TABLET PO PRN ×2 (07:15→21:02)
[2018-10-13] MEDS: hydrALAZINE HCL 25 MG TABLET PO PRN ×2 (07:15→21:27)
--- NOTE | 2018-10-13 07:19 | NUR ---
Blood pressure checked at morning, it was high, BP: 168/68, patient was stable without any S&S. Hydralazine 25 mg tab given. Continue to monitor and will endorse to the day shift nurse.
[2018-10-13 08:00] VITALS: BP 181/80
[2018-10-13] MEDS: REPAGLINIDE 1 MG TABLET PO SCH ×3 (08:43→17:22)
[2018-10-13] MEDS: CYANOCOBALAMIN 1,000 MCG TABLET PO SCH (08:44)
[2018-10-13] MEDS: MODAFINIL 100 MG TABLET PO SCH (08:44)
[2018-10-13] MEDS: BETA CAROTENE/VIT C & E/MIN TABLET PO SCH (08:45)
[2018-10-13] MEDS: CLOPIDOGREL 75 MG TABLET PO SCH (08:45)
[2018-10-13] MEDS: MIRALAX 17 GM POWD.PACK PO SCH (08:46)
--- NOTE | 2018-10-13 10:49 | NUR ---
Patient awake in stable condition. Continue therapy for ambulation and ADL activity. Continue blood sugar monitoring with sliding scale protocol. no signs fo hypo/hyperglycemia. Continue monitoring blood pressure. On HTN medication. controlled and tolerated well. will continue monitor
[2018-10-13] MEDS: INSULIN REGULAR, HUMAN 300 UNIT/3 ML VIAL SQ PRN ×3 (12:00→23:08)
[2018-10-13] MEDS: LINAGLIPTIN 5 MG TABLET PO SCH (12:06)
[2018-10-13 16:00] VITALS: BP 175/75
[2018-10-13] MEDS: METOPROLOL SUCCINATE XL 50 MG TAB.SR.24H PO SCH (17:22)
[2018-10-13] MEDS: AMLODIPINE 5 MG TABLET PO SCH (17:23)
[2018-10-13 19:30] VITALS: BP 168/73
[2018-10-13] MEDS: MAGNESIUM OXIDE 250 MG TABLET PO SCH (20:39)
[2018-10-13] MEDS: ATORVASTATIN 10 MG TABLET PO SCH (20:39)
[2018-10-13] MEDS: ASPIRIN EC 81 MG TABLET.DR PO SCH (20:41)
--- NOTE | 2018-10-13 20:48 | NUR ---
Accucheck is 238. Refused insulin at this time. Risks and benefits explained. Still refused but pt and her daughter asked to recheck again at 2300 and will reconsider. Will continue to monitor.
[2018-10-13 21:25] VITALS: BP 171/71
--- NOTE | 2018-10-13 21:46 | NUR ---
Pt resting in bed. AAO x4. Daughter at bedside. At 193, BP was 168/73, HR 88. Pt and daughter requested to wait to give the BP PRN med since pt just received her afternoon BP med. Rechecked at 2124, BP 171/71 and HR 85. PRN apresoline given. Safety measures maintained. Call light and personal belongings within reach. Will continue to monitor.
[2018-10-13 23:08] VITALS: BP 150/61
--- NOTE | 2018-10-13 23:45 | NUR ---
Rechecked blood sugar at 2300 with result of 252. Insulin was still refused. Risks and benefits explained. Still refused. Will continue to monitor.
[2018-10-14 05:45] VITALS: BP 167/74
[2018-10-14] MEDS: hydrALAZINE HCL 25 MG TABLET PO PRN ×2 (06:49→16:38)
[2018-10-14] MEDS: BLOOD SUGAR DIAGNOSTIC 1 EACH STRIP VI SCH ×4 (06:49→20:51)
--- NOTE | 2018-10-14 07:18 | NUR ---
Patient noted resting in bed with eyes closed, no complaints of pain at this time, no signs of distress, FSBS 188, patient states they do not want insulin coverage with breakfast, call light in reach, bed locked and in lowest position, all needs met at this time
[2018-10-14] MEDS: CLOPIDOGREL 75 MG TABLET PO SCH (08:17)
[2018-10-14] MEDS: CYANOCOBALAMIN 1,000 MCG TABLET PO SCH (08:17)
[2018-10-14] MEDS: BETA CAROTENE/VIT C & E/MIN TABLET PO SCH (08:17)
[2018-10-14] MEDS: MODAFINIL 100 MG TABLET PO SCH (08:17)
[2018-10-14] MEDS: glipiZIDE 10 MG TABLET PO SCH ×2 (08:17→16:37)
[2018-10-14] MEDS: MIRALAX 17 GM POWD.PACK PO SCH (08:18)
[2018-10-14] MEDS: REPAGLINIDE 1 MG TABLET PO SCH ×3 (08:18→16:37)
[2018-10-14 12:01] VITALS: BP 174/78
[2018-10-14] MEDS: LINAGLIPTIN 5 MG TABLET PO SCH (12:24)
[2018-10-14] MEDS: AMLODIPINE 5 MG TABLET PO SCH ×2 (12:24→20:36)
[2018-10-14] MEDS: METOPROLOL SUCCINATE XL 50 MG TAB.SR.24H PO SCH (16:38)
[2018-10-14 18:11] VITALS: BP 159/79
[2018-10-14 20:05] VITALS: BP 146/67
[2018-10-14] MEDS: MAGNESIUM OXIDE 250 MG TABLET PO SCH (20:21)
[2018-10-14] MEDS: ATORVASTATIN 10 MG TABLET PO SCH (20:36)
[2018-10-14] MEDS: ASPIRIN EC 81 MG TABLET.DR PO SCH (20:36)
[2018-10-14] MEDS: INSULIN REGULAR, HUMAN 300 UNIT/3 ML VIAL SQ PRN (20:52)
--- NOTE | 2018-10-14 20:59 | NUR ---
Received pt resting in bed. Daughter at bedside. No acute distress noted. No c/o pain or discomfort. Assisted to the bedside commode. Meds given as ordered. Accucheck of 293. Refused insulin. Risks and benefits explained. Still refused. Safety measures maintained. Call light and personal belongings within reach. Will continue to monitor.
[2018-10-15 04:00] VITALS: BP 194/83
[2018-10-15 05:45] VITALS: BP 160/63
[2018-10-15] MEDS: hydrALAZINE HCL 25 MG TABLET PO PRN (06:05)
[2018-10-15] MEDS: BLOOD SUGAR DIAGNOSTIC 1 EACH STRIP VI SCH ×4 (06:35→20:23)
[2018-10-15] MEDS: MODAFINIL 100 MG TABLET PO SCH (08:05)
[2018-10-15] MEDS: AMLODIPINE 5 MG TABLET PO SCH ×2 (08:06→20:27)
[2018-10-15] MEDS: BETA CAROTENE/VIT C & E/MIN TABLET PO SCH (08:06)
[2018-10-15] MEDS: CYANOCOBALAMIN 1,000 MCG TABLET PO SCH (08:06)
[2018-10-15] MEDS: glipiZIDE 10 MG TABLET PO SCH ×2 (08:07→16:39)
[2018-10-15] MEDS: MIRALAX 17 GM POWD.PACK PO SCH (08:07)
[2018-10-15] MEDS: CLOPIDOGREL 75 MG TABLET PO SCH (08:07)
[2018-10-15] MEDS: REPAGLINIDE 1 MG TABLET PO SCH ×3 (08:07→16:39)
[2018-10-15] MEDS: ACETAMINOPHEN 325 MG TABLET PO PRN ×2 (09:19→20:46)
[2018-10-15] MEDS: INSULIN REGULAR, HUMAN 300 UNIT/3 ML VIAL SQ PRN ×2 (12:00→16:38)
[2018-10-15] MEDS: LINAGLIPTIN 5 MG TABLET PO SCH (12:01)
[2018-10-15 12:59] LABS: BASOPHILS # (AUTO) 0.1 K/uL (0.0-8.0); EOSINOPHILS # (AUTO) 0.2 K/uL (0.0-0.7); HEMOGLOBIN 8.4 g/dL (10.9-14.3); LYMPHOCYTES # (AUTO) 2.1 K/uL (20.0-40.0)
[2018-10-15 13:09] LABS: ALANINE AMINOTRANSFERASE 26 U/L (14-59); ALKALINE PHOSPHATASE 78 U/L (50-136); ASPARTATE AMINOTRANSFERASE 14 U/L (15-37); BILIRUBIN,TOTAL 0.2 mg/dL (0.2-1.0); CARBON DIOXIDE 27 mmol/L (21-32); CHLORIDE 98 mmol/L (98-107); CREATININE 1.4 mg/dL (0.6-1.3); PHOSPHOROUS 3.9 mg/dL (2.5-4.9); POTASSIUM 3.8 mmol/L (3.5-5.1); UREA NITROGEN, BLOOD 40 mg/dL (7-18)
[2018-10-15 13:10] LABS: MAGNESIUM 2.4 mg/dL (1.8-2.4); TOTAL PROTEIN, SERUM 7.5 g/dL (6.4-8.2)
[2018-10-15 13:13] LABS: GLUCOSE 389 mg/dL (74-106)
[2018-10-15 13:15] LABS: EOSINOPHILS % (AUTO) 2.7 % (0.0-7.0); HEMATOCRIT 24.6 % (31.2-41.9); LYMPHOCYTES % (AUTO) 29.5 % (20.5-51.5); MEAN CORPUSCULAR HEMOGLOBIN 32.7 uug (24.7-32.8); MEAN CORPUSCULAR HGB CONC 34 g/dL (32.3-35.6); MONOCYTES # (AUTO) 0.5 K/uL (2.0-10.0); MONOCYTES % (AUTO) 6.5 % (0.0-11.0); NEUTROPHILS # (AUTO) 4.4 K/uL (1.8-8.9); NEUTROPHILS % (AUTO) 60.3 % (38.5-71.5); RED BLOOD CELL COUNT(AUTO) 2.56 MIL/uL (3.63-4.92); WHITE BLOOD COUNT (AUTO) 7.3 K/uL (3.8-11.8)
[2018-10-15 13:16] LABS: PLATELET COUNT (AUTO) 307 K/uL (179-408)
--- NOTE | 2018-10-15 13:54 | NUR ---
Patient blood sugar 408 before lunch time.humulin R insulin sliding scale given with. MD Mendez aware. no signs of hypo/hyperglycemia.
[2018-10-15] MEDS: METOPROLOL SUCCINATE XL 50 MG TAB.SR.24H PO SCH (16:43)
--- NOTE | 2018-10-15 19:44 | NUR ---
PATIENT IS AWAKE IN BED, AAOX3 WITH FORGETFULNESS. DENIES PAIN OR ANY DISTRESS ON ASSESSMENT. SAFETY MEASURES IN PLACE, CALL LIGHT WITHIN PATIENT'S REACH
[2018-10-15 20:00] VITALS: BP 129/62
[2018-10-15] MEDS: ASPIRIN EC 81 MG TABLET.DR PO SCH (20:23)
[2018-10-15] MEDS: MAGNESIUM OXIDE 250 MG TABLET PO SCH (20:26)
[2018-10-15] MEDS ORDERED: ATORVASTATIN 40 MG TABLET ONE (21:12)
[2018-10-15] MEDS: ATORVASTATIN 10 MG TABLET PO SCH (21:15)
--- NOTE | 2018-10-15 21:29 | NUR ---
ACCU CHECK BLOOD SUGAR 132, PATIENT REFUSED INSULIN SLIDING SCALE. EXPLAINED BENEFITS OF TAKING MEDS PRESCRIBED TO PATIENT AND DAUGHTER BUT STILL REFUSED.
[2018-10-16 06:00] VITALS: BP 149/62
[2018-10-16] MEDS: BLOOD SUGAR DIAGNOSTIC 1 EACH STRIP VI SCH ×4 (06:32→22:19)
--- NOTE | 2018-10-16 06:37 | NUR ---
PATIENT SLEPT WELL THROUGHOUT THE SHIFT, NO C/O PAIN OR ACUTE DISTRESS ON THIS SHIFT. NO SIGNIFICANT CHANGES IN STATUS. SAFETY MEASURES MAINTAINED AT ALL TIMES
[2018-10-16] MEDS: MIRALAX 17 GM POWD.PACK PO SCH (08:09)
[2018-10-16] MEDS: REPAGLINIDE 1 MG TABLET PO SCH ×3 (08:10→16:27)
[2018-10-16] MEDS: MODAFINIL 100 MG TABLET PO SCH (08:10)
[2018-10-16] MEDS: CYANOCOBALAMIN 1,000 MCG TABLET PO SCH (08:12)
[2018-10-16] MEDS: BETA CAROTENE/VIT C & E/MIN TABLET PO SCH (08:13)
[2018-10-16] MEDS: glipiZIDE 10 MG TABLET PO SCH ×2 (08:13→16:27)
[2018-10-16] MEDS: CLOPIDOGREL 75 MG TABLET PO SCH (08:13)
[2018-10-16] MEDS: AMLODIPINE 5 MG TABLET PO SCH ×2 (08:13→22:19)
[2018-10-16] MEDS: ACETAMINOPHEN 325 MG TABLET PO PRN (08:21)
--- NOTE | 2018-10-16 09:14 | NUR ---
Patient received awake in wheelchair in stable condition. Continue therapy for unsteady gait and ADL activity. tolerated well. Continue blood sugar monitoring with insulin sliding scale and oral medicine to control. will continue monitor Addendum: 10/16/18 at 0918 by YARELI JORDAN RN RN Continue blood pressure medicine for HTN-controlled. Continue monitoring for signs of stroke. no signs and symptoms noted. not in distress. Contiune giving pain management prior to therapy.
[2018-10-16] MEDS: INSULIN REGULAR, HUMAN 300 UNIT/3 ML VIAL SQ PRN ×3 (11:42→22:22)
[2018-10-16] MEDS: LINAGLIPTIN 5 MG TABLET PO SCH (11:48)
[2018-10-16] MEDS: METOPROLOL SUCCINATE XL 50 MG TAB.SR.24H PO SCH (16:26)
[2018-10-16 20:00] VITALS: BP 132/56
[2018-10-16] MEDS ORDERED: ATORVASTATIN 40 MG TABLET PO SCH (21:00)
[2018-10-16] MEDS: ASPIRIN EC 81 MG TABLET.DR PO SCH (21:04)
[2018-10-16] MEDS: MAGNESIUM OXIDE 250 MG TABLET PO SCH (21:05)
[2018-10-17 05:00] VITALS: BP 139/62
[2018-10-17] MEDS: MODAFINIL 100 MG TABLET PO SCH (08:22)
[2018-10-17] MEDS: BETA CAROTENE/VIT C & E/MIN TABLET PO SCH (08:22)
[2018-10-17] MEDS: CYANOCOBALAMIN 1,000 MCG TABLET PO SCH (08:23)
[2018-10-17] MEDS: glipiZIDE 10 MG TABLET PO SCH (08:23)
[2018-10-17] MEDS: REPAGLINIDE 1 MG TABLET PO SCH ×2 (08:23→12:14)
[2018-10-17] MEDS: CLOPIDOGREL 75 MG TABLET PO SCH (08:23)
[2018-10-17] MEDS: MIRALAX 17 GM POWD.PACK PO SCH (08:24)
[2018-10-17 08:28] VITALS: BP 151/62
[2018-10-17] MEDS: AMLODIPINE 5 MG TABLET PO SCH (08:28)
[2018-10-17] MEDS: BLOOD SUGAR DIAGNOSTIC 1 EACH STRIP VI SCH ×2 (08:31→12:14)
[2018-10-17] MEDS: INSULIN REGULAR, HUMAN 300 UNIT/3 ML VIAL SQ PRN ×2 (08:31→12:19)
--- NOTE | 2018-10-17 10:37 | NUR ---
Patient awake and oriented in bed in stable condition. Continue on therapy for ambulation and ADL ability. For discharge this day, around 1pm via ambulance. will continue monitor
[2018-10-17] MEDS: LINAGLIPTIN 5 MG TABLET PO SCH (12:14)
--- NOTE | 2018-10-17 13:53 | NUR ---
Patient discharge to home with home health agency at around 110pm in stable condition via ambulance with 2 EMT and daughter. medication list fax to [facility]. test results and medication list and medical instruction given to daughter. verbalize understanding. MD Mcginnis and LONDON Britt notified.
== END 2018-10-17 13:10 | disposition home health service (06) | DRG 56 ==
PROVIDERS: ADMIT Physical Medicine & Rehabilitation Pain Medicine; ATTEND Physical Medicine & Rehabilitation Pain Medicine
DX: I69.354 Hemiplegia and hemiparesis following cerebral infarction affecting left non-dominant side (principal); G92 Toxic encephalopathy; N17.0 Acute kidney failure with tubular necrosis; D68.59 Other primary thrombophilia; I50.32 Chronic diastolic (congestive) heart failure; N39.0 Urinary tract infection, site not specified; I13.0 Hypertensive heart and chronic kidney disease with heart failure and stage 1 through stage 4 chronic kidney disease, or unspecified chronic kidney disease; I69.398 Other sequelae of cerebral infarction; I69.392 Facial weakness following cerebral infarction; E78.5 Hyperlipidemia, unspecified; E66.9 Obesity, unspecified; Z68.30 Body mass index [BMI] 30.0-30.9, adult; E11.65 Type 2 diabetes mellitus with hyperglycemia; D63.8 Anemia in other chronic diseases classified elsewhere; E86.1 Hypovolemia; F01.50 Vascular dementia, unspecified severity, without behavioral disturbance, psychotic disturbance, mood disturbance, and anxiety; I08.0 Rheumatic disorders of both mitral and aortic valves; M19.90 Unspecified osteoarthritis, unspecified site; E11.22 Type 2 diabetes mellitus with diabetic chronic kidney disease; N18.9 Chronic kidney disease, unspecified; Z79.82 Long term (current) use of aspirin; M25.562 Pain in left knee; G89.29 Other chronic pain; R41.89 Other symptoms and signs involving cognitive functions and awareness; Z88.0 Allergy status to penicillin
CPT/HCPCS: 36415; 70030-TC; 76770; 82652; 83550; 83735; 83970; 84100; 84155; 84165; 84443; 85025; 87086; 92523; 97110; 97112; 97116; 97165; 97530; 97535; J1815